=== PATIENT | male | born 1970 | race Caucasian/White ===

== ENCOUNTER 2022-09-27 08:51 | Outpatient (CLI) | payer OTHER, SELFPAY ==
[2022-09-27 14:22] LABS: Chloride* 102 mmol/L (96-114); Potassium* 4.4 mmol/L (3.6-5.1); Sodium* 134 mmol/L (135-149)
[2022-09-27 14:25] LABS: Blood Urea Nitrogen* 10 mg/dL (7-30); Carbon Dioxide* 24 mmol/L (20-32); Cholesterol* 142 mg/dL (90-199); Creatinine* 0.9 mg/dL (0.5-1.5); Estimated Glomerular Filt Rate 103 ml/min; Glucose* 82 mg/dL (60-115); Triglycerides* 67 mg/dL (40-149)
[2022-09-27 14:26] LABS: Calcium* 8.8 mg/dL (8.4-10.6); HDL Cholesterol* 48 mg/dL (>=40); LDL Cholesterol Calculated 81 mg/dL (<100)
[2022-09-27 14:56] LABS: PSA Screen* 0.77 ng/mL (0.10-4.00)
== END 2022-09-27 08:52 | disposition home or self-care (01) ==
PROVIDERS: PCP Family Medicine; Visit Provider Family Medicine
DX: Z00.00 Encounter for general adult medical examination without abnormal findings (principal); G40.909 Epilepsy, unspecified, not intractable, without status epilepticus; Z12.5 Encounter for screening for malignant neoplasm of prostate; Z13.6 Encounter for screening for cardiovascular disorders
CPT/HCPCS: 80048; 80061; 80164; 80165; 84153

== ENCOUNTER 2024-01-10 08:45 | Outpatient (CLI) | payer OTHER, SELFPAY | END 2024-01-10 08:46 | disposition home or self-care (01) | PROVIDERS: PCP Family Medicine; Visit Provider Family Medicine | DX: I10 Essential (primary) hypertension (principal); R07.9 Chest pain, unspecified; Z12.5 Encounter for screening for malignant neoplasm of prostate | CPT/HCPCS: 80048; 80061; G0103 ==

== ENCOUNTER 2024-09-17 09:15 | Outpatient (CLI) | payer OTHER, SELFPAY | END 2024-09-17 09:16 | disposition home or self-care (01) | PROVIDERS: PCP Family Medicine; Visit Provider Family Medicine | DX: Z00.00 Encounter for general adult medical examination without abnormal findings (principal); G40.909 Epilepsy, unspecified, not intractable, without status epilepticus; F33.9 Major depressive disorder, recurrent, unspecified; Z13.9 Encounter for screening, unspecified | CPT/HCPCS: 80048; 84460; 85025 ==

== ENCOUNTER 2024-12-21 10:08 | Outpatient (CLI) | payer OTHER, SELFPAY | END 2024-12-21 10:09 | disposition home or self-care (01) | LOC: NFLDREF 12-31 00:03 | PROVIDERS: PCP Family Medicine; Referring Provider Family Medicine; Visit Provider Family Medicine | DX: D64.9 Anemia, unspecified (principal) | CPT/HCPCS: 85018 ==

== ENCOUNTER 2025-01-04 12:29 | Outpatient (CLI) | payer OTHER, SELFPAY | END 2025-01-04 12:30 | disposition home or self-care (01) | PROVIDERS: PCP Family Medicine; Visit Provider Family Medicine | DX: D50.9 Iron deficiency anemia, unspecified (principal) | CPT/HCPCS: 82607; 82728; 82746; 83540; 83550; 85025 ==

== ENCOUNTER 2025-02-14 12:40 | Outpatient (CLI) | payer OTHER, SELFPAY ==
--- NOTE | 2025-02-14 13:17 | P.ANES_ITS ---
Anesthesia Charges Start Date/Time Anesthesia Start Date: 02/14/25 Anesthesia Start Time: 13:34 Stop Date/Time Anesthesia Stop Date: 02/14/25 Anesthesia Stop Time: 13:50 Coding CPT Codes CPT Codes: ANES UPR GI NDSC PX NOS - [id number] ([id number]) P2 - PATIENT W/MILD SYST DISEASE, QK - WARP CHANGER 2-4 CNCRNT ANES PROC, QX - QUALITY ASSURANCE MONITOR SVC W/ MD MED DIRECTION
--- NOTE | 2025-02-14 13:17 | W.ANESCHARGE ---
Anesthesia Charges Start Date/Time Anesthesia Start Date: 02/14/25 Anesthesia Start Time: 13:34 Stop Date/Time Anesthesia Stop Date: 02/14/25 Anesthesia Stop Time: 13:50 Coding CPT Codes CPT Codes: ANES UPR GI NDSC PX NOS - [id number] ([id number]) P2 - PATIENT W/MILD SYST DISEASE, QK - SENIOR WINDOWS ENGINEER 2-4 CNCRNT ANES PROC, QX - MEDICAL ASSISTANT OB GYN SVC W/ MD MED DIRECTION
[2025-02-14] MEDS: GI COCKTAIL (VISC LIDO/ANTACID) 30 ML PO (14:47)
--- NOTE | 2025-02-14 15:03 | P.ANES_ITS ---
Anesthesia Charges Start Date/Time Anesthesia Start Date: 02/14/25 Anesthesia Start Time: 13:34 Stop Date/Time Anesthesia Stop Date: 02/14/25 Anesthesia Stop Time: 13:50 Coding CPT Codes CPT Codes: ANES UPR GI NDSC PX NOS - [id number] ([id number]) P2 - PATIENT W/MILD SYST DISEASE, QK - CYTOLOGY MANAGER 2-4 CNCRNT ANES PROC, QX - CORRECTIONAL MEDICINE PHYSICIAN SVC W/ MD MED DIRECTION
--- NOTE | 2025-02-14 15:03 | W.ANESCHARGE ---
Anesthesia Charges Start Date/Time Anesthesia Start Date: 02/14/25 Anesthesia Start Time: 13:34 Stop Date/Time Anesthesia Stop Date: 02/14/25 Anesthesia Stop Time: 13:50 Coding CPT Codes CPT Codes: ANES UPR GI NDSC PX NOS - [id number] ([id number]) P2 - PATIENT W/MILD SYST DISEASE, QK - SUPERVISOR OF OFFICIALS 2-4 CNCRNT ANES PROC, QX - TELECOM MANAGER SVC W/ MD MED DIRECTION
== END 2025-02-14 12:41 | disposition home or self-care (01) ==
LOC: OP CLINIC 12:41
PROVIDERS: PCP Family Medicine; Visit Provider Surgery
DX: R10.13 Epigastric pain (principal); K22.89 Other specified disease of esophagus
CPT/HCPCS: 00731; 43239; A9270; J2704; J3490

== ENCOUNTER 2025-04-11 11:34 | Outpatient (CLI) | payer OTHER, SELFPAY | END 2025-04-11 11:35 | disposition home or self-care (01) | LOC: NFLDREF 04-18 22:17 | PROVIDERS: PCP Family Medicine; Referring Provider Family Medicine; Visit Provider Family Medicine | DX: D50.9 Iron deficiency anemia, unspecified (principal) | CPT/HCPCS: 85018 ==

== ENCOUNTER 2025-06-07 07:50 | Outpatient (CLI) | payer OTHER, SELFPAY | END 2025-06-07 07:51 | disposition home or self-care (01) | LOC: RAD 07:50 | PROVIDERS: PCP Family Medicine; Visit Provider Family Medicine | DX: G47.33 Obstructive sleep apnea (adult) (pediatric) (principal) | CPT/HCPCS: 93306 ==

== ENCOUNTER 2025-09-06 09:40 | Outpatient (CLI) | payer OTHER, SELFPAY | END 2025-09-06 09:41 | disposition home or self-care (01) | PROVIDERS: PCP Family Medicine; Visit Provider Family Medicine | DX: Z13.9 Encounter for screening, unspecified (principal); D50.9 Iron deficiency anemia, unspecified; G40.909 Epilepsy, unspecified, not intractable, without status epilepticus; R53.83 Other fatigue | CPT/HCPCS: 80048; 80061; 80164; 80165; 82728; 84443; 85025; G0103 ==